=== PATIENT | male | born 1965 | race Caucasian/White ===

== ENCOUNTER 2022-10-11 02:58 | Emergency (ER) | payer BC, SELFPAY ==
[2022-10-11 02:59] VITALS: BP 180/138; PULSE 89; RESP 26; TEMP 36.1; O2SAT 97; BMI 41.8
[2022-10-11] MEDS: Morphine 4 MG/ML Syringe 6 MG IM (03:37)
[2022-10-11] MEDS: diazePAM 5 MG Tablet PO ×2 (03:38→05:08)
[2022-10-11] MEDS: Ondansetron ODT 4 MG Tablet PO (03:38)
[2022-10-11 04:59] VITALS: BP 175/78
[2022-10-11] MEDS: HYDROmorphone 0.5 MG/0.5 ML SYRINGE IV (05:13)
[2022-10-11 05:24] LABS: Mucous, Urine 0 SEEN /hpf (<or=2+); Squamous Epithelial Cells - UA 0 SEEN /hpf (0-5)
[2022-10-11 05:25] LABS: Absolute Lymphocyte Count 1.41 X10^3/uL (0.83-4.51); Absolute Neutrophil Count 9.1 X10^3/uL (2.0-7.7); Basophil# 0.04 X10^3/uL; Basophil% 0.3 % (0-1); Color, Urine Red (Yellow); Eosinophil# 0.18 X10^3/uL; Eosinophils% 1.6 % (0-5); Glucose, Dipstick Normal (Normal); Hematocrit 40.9 % (40-54); Ketone-Dipstick Negative (Negative); Leukocyte Esterase-Dipstick 100 /ul (Negative); Lymphocyte # 1.41 X10^3/ul (0.83-4.51); Lymphocyte % 12.2 % (19-41); Mean Corp Hgb Conc 34.2 g/dL (32-36); Mean Corpuscular Hgb 29.4 pg (27.0-32.0); Mean Corpuscular Volume 85.7 fL (80-94); Mean Platelet Vol. 9.7 fl (6.2-12.0); Monocyte% 6.9 % (0-10); NRBC Flagged by Analyzer 0 % (0-5); Neutrophil % 78.4 % (47-70); Nitrite-Dipstick Positive (Negative); Occult Blood-Urine 250 /ul (Negative); Platelet Count 220 K/mm3 (150-450); Protein-Dipstick 100 mg/dl (Negative); RBC Distribution Width CV 13.2 % (11.6-14.6); RBC Distribution Width SD 41.5 fl (35.1-43.9); Red Blood Count 4.77 M/mm3 (4.6-6.2); Specific Gravity, Urine 1.005 (1.002-1.030); Urine Bilirubin Dipstick Negative (Negative); Urine Clarity Cloudy (Clear); Urine Urobilinogen Normal (Normal); White Blood Count 11.6 K/mm3 (4.4-11.0)
[2022-10-11 05:32] LABS: Bacteria 1+ /hpf (None Seen); Red Blood Cells-Urine 0-5 SEEN /hpf (0-5); White Blood Cells >100 SEEN /hpf (0-5)
[2022-10-11 05:46] LABS: Anion Gap 7 (5-15); BUN 18 mg/dL (7-18); BUN/Creat Ratio 15.5 RATIO (10-20); Chloride 108 mmol/L (98-107); Creatinine, Serum 1.16 mg/dL (0.70-1.30); EST Glomerular Filtration Rate 68 mL/min (>60); Est Glom Filt Rate - Afr Amer 83 mL/min (>60); Estimated Creatinine Clearance 75.26 ml/min; Glucose 139 mg/dL (74-106); Potassium 3.4 mmol/L (3.5-5.1); Sodium Level 139 mmol/L (136-145)
--- NOTE | 2022-10-11 06:40 | EX.ED.DYSGE1 ---
HPI History of Present Illness Chief Complaint: Complaint Informant: patient and spouse/S.O. Narrative Narrative: Patient is a 57-year-old male with past medical history of BPH who underwent a TURP in June. He states that over the last 12 hours or so he has only been able to dribble and he has had increasing abdominal pain. He states that he has required Weathers catheters before and is concerned about an obstruction/retention and with this presents for evaluation. PFSH PFS Medical History (Updated 10/13/22 @ 01:[address] Roberth Altman, DO) Arthritis Asthma Hemorrhoids Hypertension Home Medications albuterol sulfate 90 mcg/actuation aerosol inhaler 2 puff inhalation Q6H PRN 08/10/20 [History Last Taken Unknown] tamsulosin 0.4 mg capsule (Flomax) 0.4 mg PO DAILY 08/10/20 [History Last Taken Unknown] aspirin 81 mg capsule 81 mg PO DAILY 10/11/22 [History Last Taken Unknown] methenamine hippurate 1 gram tablet 1 g PO DAILY 10/11/22 [History Last Taken Unknown] Allergy/AdvReac Type Severity Reaction Status Date / Time Environmental Allergies: AdvReac Unknown NEEDS Verified 10/11/22 05:32 Uncoded FOLLOW-UP Fish Containing Products AdvReac Food Verified 10/11/22 05:32 Allergy Surgical History (Updated 08/10/20 @ 07:52 by Venice Mata RN) Hx of cholecystectomy Social History (Updated 08/10/20 @ 07:52 by Venice Mata RN) Smoking Status: Never smoker Smokeless tobacco user: other ROS ROS ED Constitutional Constitutional ED: Denies chills or fever(s) ENT ENT ED: Denies sore throat Cardiovascular Cardiovascular: Denies chest pain Respiratory/Chest Respiratory/Chest: Denies cough or dyspnea Gastrointestinal Gastrointestinal: Reports abdominal pain; Denies diarrhea, nausea or vomiting Genitourinary Genitourinary ED: Reports other Details: Positive urinary retention ; Denies dysuria Musculoskeletal Musculoskeletal: Reports back pain; Denies myalgias Integumentary Denies rash Neurologic Neurologic: Denies headache(s) Hematologic/Lymphatic Hematologic/Lymphatic: Denies easy bleeding or easy bruising EXAM Physical Exam Const Vital Signs: 10/11/22 02:59 10/11/22 04:59 Temperature 97 F L Temperature Source Temporal Pulse Rate 89 Respiratory Rate 26 H Blood Pressure 180/138 H 175/78 H Blood Pressure Mean 152 110 Pulse Ox 97 Oxygen Delivery Method Room Air Positive well nourished and well developed General Appearance ED: well developed HEENT Reports moist mucous membranes Eyes PERRL and EOMs intact bilaterally General Eye ED: Negative for scleral icterus Neck supple Resp normal respiratory effort and clear to auscultation bilaterally Cardio regular rate and regular rhythm GI GI Narrative: Abdomen is obese but in the suprapubic/midline lower abdomen region there is organomegaly consistent with a distended bladder and there is pain with palpation at the site. No pulsatile mass or fluid wave noted. Auscultation: normoactive bowel sounds Palpation: soft Narrative: Normal circumcised male without blood or discharge from the urethral meatus as well as no testicular swelling or masses or signs of Christophe's gangrene. Back/Spine no CVA tenderness Extremity normal to inspection Neuro oriented x3, CN's II-XII intact bilaterally and no sensory deficits noted Sensorium / Orientation: alert Motor Exam: strength 5/5 throughout Psych mental status grossly normal Skin no rashes or lesions noted General Skin Exam: Negative for jaundice MDM MDM MDM Narrative Medical decision making narrative: Patient presented to the ER hypertensive but history and exam is consistent with acute urinary retention. He reported 12 to 24 hours of only dribbling and therefore there is concern for acute kidney injury so basic blood work was obtained. Other differentials include urinary tract infection versus acute kidney injury. Kidney function was at patient's baseline near 1 but urine did show changes consistent with UTI. He was started antibiotics and the urine was sent for culture but he has no signs of urosepsis. Weathers catheter was attempted to be placed. Despite multiple attempts it was difficult to thread the Weathers catheter and after doing so the patient then developed increased bleeding. Multiple attempts at catheterization were performed but were unsuccessful and on repeat examination he did feel persistently distended and this was confirmed with bladder scan and bedside ultrasound. There is no urology on-call and therefore I cannot keep the patient at this facility as he is requiring emergent catheterization secondary to persistent retention. The patient's urologist is at [facility] and therefore they were contacted and they do agree to accept the patient and he will be sent there with ER to ER transfer with hopes that he can be seen in the ER by urology to perform a catheterization. History & Record Review Discussion w/independent historian: Patient and Family Lab Data Attestation: I reviewed the patient's lab results. Labs: Laboratory Results - last 24 hr 10/11/22 05:15 WBC 11.6 H RBC 4.77 Hgb 14.0 Hct 40.9 MCV 85.7 MCH 29.4 MCHC 34.2 RDW Std Deviation 41.5 RDW Coeff of Ac 13.2 Plt Count 220 MPV 9.7 Immature Gran % (Auto) 0.600 Neut % (Auto) 78.4 H Lymph % (Auto) 12.2 L [place] % (Auto) 6.9 Eos % (Auto) 1.6 Baso % (Auto) 0.3 Absolute Neuts (auto) 9.1 H Absolute Lymphs (auto) 1.41 Nucleated RBC % 0 Sodium 139 Potassium 3.4 L Chloride 108 H Carbon Dioxide 24.0 Anion Gap 7 BUN 18 Creatinine 1.16 Estim Creat Clear Calc 75.26 Est GFR (MDRD) Af Amer 83 Est GFR (MDRD) Non-Af 68 BUN/Creatinine Ratio 15.5 Glucose 139 H Calcium 9.0 Urine Color Red Urine Clarity Cloudy Urine pH 7.0 Ur Specific [place] 1.005 Urine Protein 100 H Urine Glucose (UA) Normal Urine Ketones Negative Urine Occult Blood 250 H Urine Nitrite Positive H Urine Bilirubin Negative Urine Urobilinogen Normal Ur Leukocyte Esterase 100 H Urine RBC 0-5 SEEN Urine WBC >100 SEEN Ur Squamous Epith Cells 0 SEEN Urine Bacteria 1+ Urine Mucus 0 SEEN Management Discussion w/another healthcare provider: [employer] Discharge Plan Triage Chief Complaint: Complaint ED Provider: Roberth Altman Dx/Rx/DC Orders Clinical Impression: Acute urinary retention, Hypertension Prescriptions: No Action albuterol sulfate 90 mcg/actuation HFA aerosol inhaler 2 puff inhalation Q6H PRN tamsulosin [Flomax] 0.4 mg capsule 0.4 mg PO DAILY methenamine hippurate 1 gram tablet 1 g PO DAILY Patient Comments: TAKE 1 TABLET BY MOUTH TWICE A DAY aspirin 81 mg capsule 81 mg PO DAILY Primary Care Provider: Jesus Frank Referrals: Jesus Frank MD [Primary Care Provider] - Disposition Disposition: Acute Care Hospital Discharge Location: [facility] Discharge Date/Time: 10/11/22 06:57
[2022-10-11] MEDS: Ciprofloxacin 500 MG Tablet PO (06:53)
[2022-10-11 06:55] VITALS: BP 112/58; PULSE 81; RESP 16; O2SAT 99
[2022-10-11 06:56] VITALS: BP 112/58
== END 2022-10-11 06:57 | disposition short-term general hospital (02) ==
PROVIDERS: Emergency Provider Emergency Medicine; PCP Family Medicine; Visit Provider Emergency Medicine
DX: R33.9 Retention of urine, unspecified (principal); I10 Essential (primary) hypertension; N40.0 Benign prostatic hyperplasia without lower urinary tract symptoms; Z79.82 Long term (current) use of aspirin; Z79.899 Other long term (current) drug therapy
CPT/HCPCS: 80048; 81001; 85025; 87086; 96372; 96374; 99285; A4216